=== PATIENT | female | born 1955 | race Caucasian/White ===

== ENCOUNTER 2016-05-14 10:20 | Emergency (ER) | payer BC ==
[~2016-05-14] VITALS: Ht 157.5 cm; Wt 96.0 kg
[~2016-05-14 10:20] MED LIST: ALBU8I INH; ASPI81 PO; BENZ1CAP34 PO; CALCCHW25 PO; CETI10 PO; CO Q100C7 PO; FLUT1SPR9 NASAL; GLIM1 PO; JANU100T PO; LEVO175T21 PO; LISI-360 PO; PRIL20TA2 PO; SIMV20TA PO; TAB-TAB PO
[2016-05-14 10:27] VITALS: BP 154/83; PULSE 87; RESP 16; TEMP 98.5; O2SAT 97
[2016-05-14] MEDS ORDERED: SODIUM CHLOR 0.9% 1000 ML INJ 1,000 ML IV SCH (10:34)
[2016-05-14] MEDS ORDERED: MORPHINE SULFATE 4 MG/ML INJ IV PUSH ONE (10:45)
[2016-05-14] MEDS ORDERED: SODIUM CHLORIDE 0.9% FLUSH 5 ML FLUSH IVF PRN (10:45)
[2016-05-14] MEDS ORDERED: ONDANSETRON HCL 4 MG/2 ML VIAL IVP ONE (10:45)
--- NOTE | 2016-05-14 10:48 | PD ---
HPI . Abdominal pain Chief Complaint: Abdominal Pain Time Seen by Provider: 10:34 Travel History International Travel<30 days: No Contact w/Intl Traveler<30days: No Traveled to known affect area: No History of Present Illness HPI The patient presents with a 3-4 day history of suprapubic abdominal pressure. It is bilateral but is worse on the right. She went to urgent care this morning for evaluation hoping that she had a simple UTI. Her UA was reportedly negative and she was sent to us for further evaluation. The patient denies any associated symptoms such as fever, nausea, vomiting, diarrhea, constipation, loss of appetite. She does state that she had some very mild dysuria and maybe a little bit of frequency at the onset of her symptoms but those symptoms have not been persistent and have been very mild. PFSH Past Medical History Cancer: No Cardiovascular Problems: No High Cholesterol: Yes Diabetes: Yes Diminished Hearing: Yes (Hearing aids) Hepatitis: No Hiatal Hernia: No Hypertension: No Thyroid Disease: Yes (Hypo-) Past Surgical History Abdominal Surgery: No Cardiac Surgery: No Section: Yes Ear Surgery: Yes (BL myringotomy ) Genitourinary Surgery: No Pacemaker: No Thoracic Surgery: No Tonsillectomy: Yes Other Surgery: Yes (TMJ) Social History Alcohol Use: Yes (Rare) Tobacco Use: No Substance Use: No Allergies-Medications (Allergen,Severity, Reaction): Coded Allergies: No Known Allergies (Verified , 05/14/16) Reported Meds & Prescriptions Reported Meds & Active Scripts Active Reported Glucosamine Chondroitin (Uclobeugqib-Utkeowjjtyl-Puj C-) 1 Cap Cap 2 Cap PO DAILY Calcium + D3 (Calcium Carbonate-Cholecalciferol) 600-200 Mg-Unit Tab 1 Tab PO BID Aspirin 81 Mg Chew 81 Mg CHEW DAILY Centrum Silver (Multiple Vitamins W/ Minerals) 1 Tab 1 Tab PO DAILY Prilosec (Omeprazole) 20 Mg Cap 20 Mg PO DAILY Yas Allergy (Fexofenadine HCl) 180 Mg Tab 180 Mg PO DAILY Coq-10 (Coenzyme Q10 (Ubidecarenone)) 100 Mg Cap 200 Cap PO DAILY Trulicity Inj (Dulaglutide Inj) 0.75 Mg/0.5 Ml Pen 0.75 Mg SQ Q7D Atorvastatin (Atorvastatin Calcium) 20 Mg Tab 20 Mg PO HS Levothyroxine (Levothyroxine Sodium) 150 Mcg Tab 150 Mcg PO DAILY Glimepiride 4 Mg Tab 4 Mg PO DAILY Take with breakfast or first main meal Pioglitazone (Pioglitazone HCl) 15 Mg Tab 15 Mg PO DAILY Metformin ER (Metformin HCl) 500 Mg Flynn 500 Mg PO HS With evening meal Lisinopril 10 Mg Tab 10 Mg PO DAILY Review of Systems Except as stated in HPI: all other systems reviewed are Neg General / Constitutional: No: Fever, Chills Respiratory: No: Cough, Shortness of Breath Gastrointestinal: Positive: Abdominal Pain, No: Nausea, Vomiting, Diarrhea, Constipation, Loss of Appetite Genitourinary: Positive: Frequency, Dysuria, Other (postmenopausal for about 10 -12 years.), No: Urgency Physical Exam Narrative GENERAL: This is a pleasant, healthy-appearing woman in no acute distress. SKIN: Warm and dry. HEAD: Atraumatic. Normocephalic. EYES: Pupils equal and round. ENT: No nasal bleeding or discharge. Mucous membranes pink and moist. NECK: Trachea midline. CARDIOVASCULAR: Regular rate and rhythm. Heart sounds are normal. RESPIRATORY: No accessory muscle use. Lungs are clear. GASTROINTESTINAL: Abdomen soft. Mild lower abdominal tenderness. No guarding or rebound. Nondistended. MUSCULOSKELETAL: No obvious deformities. No edema. NEUROLOGICAL: Awake and alert. No obvious cranial nerve deficits. Motor grossly within normal limits. Normal speech. PSYCHIATRIC: Appropriate mood and affect; insight and judgment normal. Data Data Last Documented VS Vital Signs Date Time Temp Pulse Resp B/P Pulse Ox O2 Delivery O2 Flow Rate FiO2 05/14/16 11:20 83 16 140/76 96 05/14/16 10:27 98.5 Orders Complete Blood Count With Diff (05/14/16 10:34) Comprehensive Metabolic Panel (05/14/16 10:34) Lactic Acid (05/14/16 10:34) Urinalysis - C+S If Indicated (05/14/16 10:34) Ct Abd/Pel W Iv Contrast(Rout) (05/14/16 10:34) Iv Access Insert/Monitor (05/14/16 10:34) Morphine Inj (Morphine Inj) (05/14/16 10:45) Ondansetron Inj (Zofran Inj) (05/14/16 10:45) Sodium Chlor 0.9% 1000 Ml Inj (Ns 1000 M (05/14/16 10:34) Sodium Chloride 0.9% Flush (Ns Flush) (05/14/16 10:45) Iohexol 350 Inj (Omnipaque 350 Inj) (05/14/16 12:12) Labs Laboratory Tests Test 05/14/16 05/14/16 10:45 10:55 Urine Collection Type CLEAN CATCH Urine Color YELLOW Urine Turbidity CLEAR Urine pH 6.0 Urine Specific [place] 1.004 Urine Protein NEG mg/dL Urine Glucose (UA) NEG mg/dL Urine Ketones NEG mg/dL Urine Occult Blood NEG Urine Nitrite NEG Urine Bilirubin NEG Urine Leukocyte Esterase NEG Urine RBC 0-3 /hpf Urine WBC 0-2 /hpf Urine Squamous Epithelial 0-5 /hpf Cells Microscopic Urinalysis Comment CULT NOT INDICATED Urine Collection Time 10:45 White Blood Count 10.4 TH/MM3 Red Blood Count 4.23 MIL/MM3 Hemoglobin 12.4 GM/DL Hematocrit 38.0 % Mean Corpuscular Volume 89.9 FL Mean Corpuscular Hemoglobin 29.4 PG Mean Corpuscular Hemoglobin 32.7 % Concent Red Cell Distribution Width 13.1 % Platelet Count 247 TH/MM3 Mean Platelet Volume 8.2 FL Neutrophils (%) (Auto) 60.9 % Lymphocytes (%) (Auto) 32.4 % Monocytes (%) (Auto) 5.0 % Eosinophils (%) (Auto) 1.4 % Basophils (%) (Auto) 0.3 % Neutrophils # (Auto) 6.4 TH/MM3 Lymphocytes # (Auto) 3.4 TH/MM3 Monocytes # (Auto) 0.5 TH/MM3 Eosinophils # (Auto) 0.1 TH/MM3 Basophils # (Auto) 0.0 TH/MM3 CBC Comment DIFF FINAL Differential Comment Sodium Level 145 MEQ/L Potassium Level 3.8 MEQ/L Chloride Level 107 MEQ/L Carbon Dioxide Level 29.9 MEQ/L Anion Gap 8 MEQ/L Blood Urea Nitrogen 13 MG/DL Creatinine 0.74 MG/DL Estimat Glomerular Filtration 80 ML/MIN Rate Random Glucose 133 MG/DL Lactic Acid Level 1.9 mmol/L Calcium Level 8.9 MG/DL Total Bilirubin 0.2 MG/DL Aspartate Amino Transf 12 U/L (AST/SGOT) Alanine Aminotransferase 23 U/L (ALT/SGPT) Alkaline Phosphatase 109 U/L Total Protein 7.3 GM/DL Albumin 3.7 GM/DL MDM Medical Decision Making Medical Screen Exam Complete: Yes Emergency Medical Condition: Yes Medical Record Reviewed: Yes (past medical history includes diabetes, hyperlipidemia and hypothyroidism. She has been rarely seen in the emergency department.) Differential Diagnosis Differential diagnosis of abdominal pain includes but is not limited to gastritis, pancreatitis, hepatitis, gastroenteritis, gallbladder disease, constipation, urinary retention, UTI, peptic ulcer disease, diverticulitis or appendicitis Narrative Course Patient presents to us from urgent care for further evaluation of abdominal pain. I have very low index of suspicion for an acute intra-abdominal catastrophe as her symptoms are very mild, her exam is basically negative and she has no real associated symptoms. CBC & BMP Diagram 05/14/16 10:55 Lactic acid level is normal, LFTs are normal, UA is normal. CT results: CONCLUSION: 1. 11 mm calcified nonobstructing upper pole left renal calculus. 2. No CT evidence of acute appendicitis. Diagnosis Primary Impression: Abdominal pain Qualified Code: R10.31 - Right lower quadrant abdominal pain Patient Instructions: Acute Abdominal Pain (ED), General Instructions, Narcotic given in the ED Med/Other Pt SpecificInfo: Prescription(s) given Scripts Dicyclomine (Bentyl)20 Mg Tab20 Mg PO QID PRN (abdominal pain) #12 TAB Ref 0 Prov:Cass Baxter MD 05/14/16 Disposition: 01 DISCHARGE HOME Condition: Stable Cass Baxter MD May 14, 2016 10:48
[2016-05-14 11:05] LABS: AUTOMATED NEUTROPHIL # 6.4 TH/MM3 (1.8-7.7); BASOPHIL % 0.3 % (0.0-2.0); EOSINOPHIL # 0.1 TH/MM3 (0-0.4); EOSINOPHIL % 1.4 % (0.0-4.0); HEMO FLAGS DIFF FINAL; LYMPH % 32.4 % (9.0-44.0); LYMPHOCYTE # 3.4 TH/MM3 (1.0-4.8); MEAN CELL VOLUME 89.9 FL (80.0-100.0); MEAN CORPUSCULAR HEMOGLOBIN 29.4 PG (27.0-34.0); MEAN CORPUSCULAR HGB CONC 32.7 % (32.0-36.0); NEUT % 60.9 % (16.0-70.0); PLATELET COUNT 247 TH/MM3 (150-450); RED BLOOD COUNT 4.23 MIL/MM3 (4.00-5.30); RED CELL DISTRIBUTION WIDTH 13.1 % (11.6-17.2); WHITE BLOOD COUNT 10.4 TH/MM3 (4.0-11.0)
[2016-05-14 11:05] LABS: BLOOD, URINE NEG (NEG); GLUCOSE,URINE NEG (NEG); KETONE, URINE NEG (NEG); NITRITE,URINE NEG (NEG)
[2016-05-14 11:09] LABS: METHOD OF COLLECTION CLEAN CATCH; URINE COLOR YELLOW (YELLW/STRAW)
[2016-05-14 11:10] LABS: COMMENT (UR) CULT NOT INDICATED; CULTURE IF INDICATED CULT NOT INDICATED; RBC, URINE 0-3 /hpf (0-3); SQUAMOUS EPITHELIAL CELL URINE 0-5 /hpf (0-5); WBC, URINE 0-2 /hpf (0-5)
[2016-05-14 11:11] LABS: CHLORIDE 107 MEQ/L (98-107); POTASSIUM 3.8 MEQ/L (3.5-5.1); SODIUM (NA) 145 MEQ/L (136-145)
[2016-05-14 11:15] LABS: ANION GAP 8 MEQ/L (5-15); BICARBONATE 29.9 MEQ/L (21.0-32.0); BLOOD UREA NITROGEN 13 MG/DL (7-18)
[2016-05-14 11:18] LABS: ALT (GPT) 23 U/L (10-53); AST (GOT) 12 U/L (15-37); GLOMERULAR FILTRATION RATE 80 ML/MIN (>89)
[2016-05-14 11:19] LABS: TOTAL BILIRUBIN ADULT 0.2 MG/DL (0.2-1.0)
[2016-05-14 11:20] VITALS: BP 140/76; PULSE 83; RESP 16; O2SAT 96
[2016-05-14 11:21] LABS: ALKALINE PHOSPHATASE 109 U/L (45-117)
[2016-05-14] MEDS ORDERED: FEXO15TA PO (11:57)
[2016-05-14] MEDS ORDERED: CENTTAB PO (11:57)
[2016-05-14] MEDS ORDERED: PIOG15TA5 PO (11:57)
[2016-05-14] MEDS ORDERED: LEVO150T7 PO (11:57)
[2016-05-14] MEDS ORDERED: DULA10IN SQ (11:57)
[2016-05-14] MEDS ORDERED: PRIL20CA9 PO (11:57)
[2016-05-14] MEDS ORDERED: CALC600T10 PO (11:57)
[2016-05-14] MEDS ORDERED: METF500T4 PO (11:57)
[2016-05-14] MEDS ORDERED: COQ-100C2 PO (11:57)
[2016-05-14] MEDS ORDERED: LISI10TA3 PO (11:57)
[2016-05-14] MEDS ORDERED: GLUC1CAP16 PO (11:57)
[2016-05-14] MEDS ORDERED: GLIM4TAB PO (11:57)
[2016-05-14] MEDS ORDERED: ATOR20TA15 PO (11:57)
[2016-05-14] MEDS ORDERED: ASPI81CH CHEW (11:57)
[2016-05-14] MEDS ORDERED: IOHEXOL 350 MG/ML 10 ML VIAL (for RAD DIAG) IV ONE (12:12)
--- NOTE | 2016-05-14 13:01 | RADHPO ---
EXAM DATE/TIME: 05/14/2016 12:05 [facility] COMPARISON: No previous studies available for comparison. INDICATIONS : Suprapubic pain, worse on right side. IV CONTRAST: 90 cc Omnipaque 350 (iohexol) IV ORAL CONTRAST: No oral contrast ingested. RADIATION DOSE: 22.09 CTDIvol (mGy) MEDICAL HISTORY : Hypothyroidism. Hypercholesterolemia. Diabetes. SURGICAL HISTORY : section. Colectomy. ENCOUNTER: Initial ACUITY: 3 days PAIN SCALE: 4/10 LOCATION: Right abdomen/pelvis TECHNIQUE: Volumetric scanning of the abdomen and pelvis was performed. Using automated exposure control and adjustment of the mA and/or kV according to patient size, radiation dose was kept as low as reasonably achievable to obtain optimal diagnostic quality images. FINDINGS: LOWER LUNGS: The visualized lower lungs are clear. LIVER: Homogeneous density without lesion. There is no dilation of the biliary tree. No calcifi ed gallstones. SPLEEN: Normal size without lesion. PANCREAS: Within normal limits. KIDNEYS: Normal in size and shape. There is an 11 mm calcified nonobstructing left renal calculus within the upper pole. There is no mass or hydronephrosis. ADRENAL GLANDS: Within normal limits. VASCULAR: There is no aortic aneurysm. BOWEL/MESENTERY: The stomach, small bowel, and colon demonstrate no acute abnormality. There is no free intraperitoneal air or fluid. The appendix is normal. ABDOMINAL WALL: Within normal limits. RETROPERITONEUM: There is no lymphadenopathy. BLADDER: No wall thickening or mass. REPRODUCTIVE: Within normal limits. INGUINAL: There is no lymphadenopathy or hernia. MUSCULOSKELETAL: Within normal limits for patient age. CONCLUSION: 1. 11 mm calcified nonobstructing upper pole left renal calculus. 2. No CT evidence of acute appendicitis. Virgilio Severino MD on May 14, 2016 at 12:56 Board Certified Radiologist. This report was verified electronically.
[2016-05-14 13:03] VITALS: BP 140/69; PULSE 75; RESP 16; O2SAT 97
[2016-05-14] MEDS ORDERED: BENT20TA PO (13:06)
== END 2016-05-14 13:19 | disposition home or self-care (01) ==
LOC: PHED 10:20
DX: R10.9 Unspecified abdominal pain (principal); N20.0 Calculus of kidney; E78.00 Pure hypercholesterolemia, unspecified; E11.9 Type 2 diabetes mellitus without complications; E03.9 Hypothyroidism, unspecified; Z79.4 Long term (current) use of insulin
CPT/HCPCS: 74177; 80053; 81001; 83605; 85025; 96361; 96374; 96375; 99284; J2270; J2405; J7030; Q9967